=== PATIENT | male | born 1955 | race Caucasian/White ===

== ENCOUNTER 2018-02-11 18:13 | Observation (INO) ==
[2018-02-11 19:39] LABS: Basophils # 0.1 10*3/uL (0.0-0.2); Basophils % 0.8 % (0.0-0.8); Eosinophils # 0.2 10*3/uL (0.0-0.87); Eosinophils % 2.2 % (0.00-10.9); Hematocrit 42.6 VOL% (42.0-52.0); Hemoglobin 14.8 GM/DL (14.0-18.0); Immature Granulocytes % 0.4 %; Immature Granulocytes Absolute 0.04 #; Lymphocytes # 3.9 10*3/uL (1.4-4.0); Lymphocytes % 41.2 % (21.2-54.2); Mean Corpuscular HGB Conc 34.7 GM/DL (32-36); Mean Corpuscular Hemoglobin 32 PG (27-34); Mean Platelet Volume 9.6 FL (9.6-12.0); Monocytes # 0.6 10*3/uL (0.11-0.8); Monocytes % 5.8 % (1.7-12.7); Neutrophils # 4.7 10*3/uL (1.4-7.4); Neutrophils % 49.6 % (38.7-73.9); Platelet Count 251 T/CUMM (130-400); Red Blood Count 4.68 MC/CUMM (3.8-5.5); Red Cell Distribution Width 13.2 % (9.3-17.3); White Blood Count 9.5 T/CUMM (4-12)
[2018-02-11 19:46] LABS: INR 1.6; PT Patient Result 16.2 SECS
[2018-02-11 20:05] LABS: T4 (Thyroxine) 8.1 UG/DL (4.7-13.3); Thyroid Stimulating Hormone 1.89 uIU/ml (0.358-3.74)
[2018-02-11 20:26] LABS: Albumin 3.7 G/DL (3.4-5.0); Bilirubin,Total 0.4 MG/DL (0.2-1.0); Calcium 8.7 MG/DL (8.5-10.1); Osmolality,Calculated 273.8 MOS/KG (273-304); Potassium 3.4 MMOL/L (3.5-5.1); Total Protein 6.5 G/DL (6.4-8.3)
[2018-02-11] MEDS ORDERED: ONDANSETRON 4 MG/2 ML VIAL IV PRN (22:55)
[2018-02-11] MEDS ORDERED: ZALEPLON 5 MG CAPSULE PO PRN (22:55)
[2018-02-11] MEDS ORDERED: MAGNESIUM SULF RIDER 4 GM in PREMIX 1 EACH IV PRN (22:55)
[2018-02-11] MEDS ORDERED: MAGNESIUM SULF RIDER 2 GM in PREMIX 1 EACH IV PRN (22:55)
[2018-02-12] MEDS ORDERED: MORPHINE 4 MG/1 ML VIAL IV PRN (01:53)
[2018-02-12] MEDS ORDERED: MAGNESIUM SULF RIDER 2 GM in PREMIX 1 EACH IV PRN ×2 (01:53→11:01)
[2018-02-12] MEDS ORDERED: ACETAMINOPHEN 325 MG TABLET PO PRN (01:53)
[2018-02-12] MEDS ORDERED: MAGNESIUM SULF RIDER 4 GM in PREMIX 1 EACH IV PRN (01:53)
[2018-02-12] MEDS ORDERED: ENOXAPARIN 40 MG/0.4 ML SYRINGE SUBCUT SCH ×2 (02:00→09:00)
[2018-02-12 05:10] LABS: Basophils # 0.1 10*3/uL (0.0-0.2); Basophils % 1.3 % (0.0-0.8); Eosinophils # 0.2 10*3/uL (0.0-0.87); Eosinophils % 3.3 % (0.00-10.9); Hematocrit 39.5 VOL% (42.0-52.0); Hemoglobin 14.3 GM/DL (14.0-18.0); Immature Granulocytes % 0.4 %; Immature Granulocytes Absolute 0.03 #; Lymphocytes # 3.1 10*3/uL (1.4-4.0); Lymphocytes % 43.5 % (21.2-54.2); Mean Corpuscular HGB Conc 36.2 GM/DL (32-36); Mean Corpuscular Hemoglobin 32 PG (27-34); Mean Corpuscular Volume 89.2 FL (87-102); Mean Platelet Volume 9.3 FL (9.6-12.0); Monocytes # 0.5 10*3/uL (0.11-0.8); Monocytes % 7.7 % (1.7-12.7); Neutrophils # 3.1 10*3/uL (1.4-7.4); Neutrophils % 43.8 % (38.7-73.9); Platelet Count 206 T/CUMM (130-400); Red Blood Count 4.43 MC/CUMM (3.8-5.5); Red Cell Distribution Width 13.2 % (9.3-17.3)
[2018-02-12 06:07] LABS: Calcium 8.3 MG/DL (8.5-10.1); Osmolality,Calculated 283.3 MOS/KG (273-304); Potassium 3.3 MMOL/L (3.5-5.1); Risk Ratio 4.31; Thyroid Stimulating Hormone 2.05 uIU/ml (0.358-3.74)
[2018-02-12] MEDS ORDERED: ASPIRIN EC 325 MG TABLET PO SCH (09:00)
[2018-02-12] MEDS ORDERED: POTASSIUM CHLORIDE RIDER 10 MEQ in PREMIX 1 EACH IV PRN (11:01)
[2018-02-12] MEDS: amLODIPine 5 MG TABLET PO SCH (11:15)
[2018-02-12] MEDS: hydroCHLOROthiazide 25 MG TABLET PO SCH (11:15)
[2018-02-12] MEDS: BENAZEPRIL 10 MG TABLET PO SCH (11:15)
[2018-02-12] MEDS: METOPROLOL TARTRATE 25 MG TABLET PO SCH ×2 (11:16→21:03)
[2018-02-12] MEDS: PANTOPRAZOLE 40 MG TABLET PO SCH (11:16)
[2018-02-12] MEDS: SODIUM CHLORIDE 0.9% 1,000 ML IV SCH ×2 (14:54→17:32)
[2018-02-12] MEDS ORDERED: DIAZEPAM 5 MG TABLET PO ONE (15:30)
[2018-02-12] MEDS ORDERED: diphenhydrAMINE CAP 25 MG CAPSULE PO ONE (15:30)
[2018-02-12] MEDS ORDERED: MIDAZOLAM 2 MG/2 ML VIAL ONE (17:21)
[2018-02-12] MEDS ORDERED: fentaNYL 100 MCG/2 ML VIAL ONE (17:31)
[2018-02-12] MEDS ORDERED: HEPARIN 5,000 UNIT/1 ML VIAL ONE (17:39)
[2018-02-12] MEDS ORDERED: WARFARIN 10 MG TABLET PO SCH (20:00)
[2018-02-12] MEDS ORDERED: CARBIDOPA/LEVODOPA 25-100 MG TABLET PO SCH (21:00)
[2018-02-12] MEDS ORDERED: clonazePAM 0.5 MG TABLET PO SCH (21:00)
[2018-02-13 04:00] LABS: Basophils # 0.1 10*3/uL (0.0-0.2); Basophils % 1.1 % (0.0-0.8); Eosinophils # 0.2 10*3/uL (0.0-0.87); Eosinophils % 2.7 % (0.00-10.9); Hematocrit 40.5 VOL% (42.0-52.0); Hemoglobin 14.5 GM/DL (14.0-18.0); Immature Granulocytes % 0.2 %; Immature Granulocytes Absolute 0.02 #; Lymphocytes # 3.2 10*3/uL (1.4-4.0); Lymphocytes % 39.6 % (21.2-54.2); Mean Corpuscular HGB Conc 35.8 GM/DL (32-36); Mean Corpuscular Hemoglobin 32 PG (27-34); Mean Corpuscular Volume 89.2 FL (87-102); Mean Platelet Volume 9.2 FL (9.6-12.0); Monocytes # 0.5 10*3/uL (0.11-0.8); Monocytes % 6.3 % (1.7-12.7); Neutrophils # 4.1 10*3/uL (1.4-7.4); Neutrophils % 50.1 % (38.7-73.9); Platelet Count 199 T/CUMM (130-400); Red Blood Count 4.54 MC/CUMM (3.8-5.5); Red Cell Distribution Width 13.2 % (9.3-17.3); White Blood Count 8.2 T/CUMM (4-12)
[2018-02-13 04:29] LABS: Calcium 8.2 MG/DL (8.5-10.1); Osmolality,Calculated 283.1 MOS/KG (273-304); Potassium 3.5 MMOL/L (3.5-5.1)
[2018-02-13] MEDS: amLODIPine 5 MG TABLET PO SCH (08:22)
[2018-02-13] MEDS: METOPROLOL TARTRATE 25 MG TABLET PO SCH (08:22)
[2018-02-13] MEDS: PANTOPRAZOLE 40 MG TABLET PO SCH (08:22)
[2018-02-13] MEDS: BENAZEPRIL 10 MG TABLET PO SCH (08:23)
[2018-02-13] MEDS: hydroCHLOROthiazide 25 MG TABLET PO SCH (08:23)
[2018-02-13 08:27] VITALS: BP 117/70
[2018-02-13] MEDS ORDERED: ASPIRIN CHEW 81 MG TABLET PO SCH (09:00)
[2018-02-13] MEDS ORDERED: WARFARIN 7.5 MG TABLET PO SCH (18:00)
== END 2018-02-13 12:46 | disposition home or self-care (01) ==
LOC: N.ED 18:13 → N.EDINP 18:13 → N.TELEN 21:51
PROVIDERS: ADMIT Internal Medicine Cardiovascular Disease; ATTEND Internal Medicine Cardiovascular Disease
PROC: CLCCHCL (ICD-10-PCS; 2018-02-12 16:45)